=== PATIENT | female | born 1980 | race Caucasian/White ===

== ENCOUNTER 2019-05-03 18:27 | Emergency (ER) | payer OTHER ==
[~2019-05-03] VITALS: Ht 152.4 cm; Wt 70.8 kg
[2019-05-03] MEDS ORDERED: SYNTHROID50 MCG (18:38)
[2019-05-03] MEDS ORDERED: SYNTHROID175 MCG (19:00)
[2019-05-03] MEDS ORDERED: BENADRYL25 MG (19:01)
[2019-05-03] MEDS ORDERED: TOPAMAX200 MG (19:01)
[2019-05-03] MEDS ORDERED: HALDOL DEC100 MG/1 M (19:01)
[2019-05-03] MEDS ORDERED: DEPAKOTE ER500 MG (19:02)
[2019-05-03] MEDS ORDERED: RESTORIL15 MG (19:02)
[2019-05-03] MEDS ORDERED: COGENTIN2 MG/2 ML (19:02)
== END 2019-05-03 21:12 | disposition home or self-care (01) ==
LOC: ER 18:27 → EDSEX 18:55 → ER 21:12
DX: R10.32 Left lower quadrant pain (principal); N83.02 Follicular cyst of left ovary